=== PATIENT | male | born 1945 | race Caucasian/White ===

== ENCOUNTER 2022-04-22 16:44 | Emergency (ER) | payer MEDICARE, OTHER, SELFPAY ==
[2022-04-22 16:45] VITALS: BP 145/81; PULSE 70; RESP 18; TEMP 36.4; O2SAT 98; BMI 22.9
--- NOTE | 2022-04-22 17:08 | CT_ITS ---
STUDY: CT BRAIN WITHOUT CONTRAST REASON FOR EXAM: Male, 76 years old. Fell playing basketball and hit head. Abrasion and laceration to the right. RADIATION DOSAGE (If Supplied By Facility): CTDIvol = ( 44.99 ) mGy, DLP = ( 846.73 ) mGycm TECHNIQUE: Transaxial CT imaging of the brain was performed without administration of intravenous contrast material. Individualized dose optimization techniques were used for this CT. COMPARISON: No relevant priors. FINDINGS: Normal soft tissue structures. Normal calvarium. Normal size ventricles and extra-axial spaces for the patient''s age. Normal white matter tracts of the cerebral hemispheres. Normal basal ganglia and thalami. Normal brainstem. Normal cerebellum. There is no intracranial hemorrhage. There are no findings of an acute ischemic infarction. There is mucoperiosteal reaction bilateral axillary, ethmoid and sphenoid sinuses. CT/Brain/Head without Contrast IMPRESSION: 1. No evidence of acute intracranial or calvarial abnormality. 2. Sinusitis. Electronically Signed: Marquez Carcamo DO at 17:36 EDT Reading Location ID and State: [id number] [facility] Tel [phone], Service support ,
--- NOTE | 2022-04-22 17:09 | EDS_ITS ---
HPI HPI - Fall History of Present Illness Chief Complaint: Fall Informant: patient Occured/Mechanism Occurred: Today Mechanism/Context: Yes same level fall Usually ambulates: Without assistance Pain/Injury Pain Location: face and lower extremity Current Severity: Mild Maximum Severity: Mild Worsened by: palpation Relieved by: leaving alone Associated Symptoms Associated Symptoms: Negative for Parasthesias, Weakness, Loss of function, Inability to ambulate, Loss of consciousness or Amnesia Narrative Narrative: Patient was playing basketball with his granddaughter, he went for a lay up and stepped wrong when he came down, underwent mechanical fall, falling to his face hitting on the pavement sustaining injury to his upper lip, his forehead, and scraped his right leg. No loss of consciousness. Minor headache. He self treated the abrasion on his right lower leg. No pain with walking, he denies any problems otherwise in his legs right now. No prodromal symptoms. Tetanus Immunization: >10 years [facility] Medical History (Updated 04/22/22 @ 18:[address] Keagan Hernandez MD) Esophageal reflux Hiatal hernia History of renal calculi Home Medications ondansetron 4 mg disintegrating tablet 4 mg PO Q8H PRN PRN Nausea ##10 04/22/14 [Rx Last Taken Unknown] oxycodone-acetaminophen 5 mg-325 mg tablet 1 - 2 tab PO Q4H PRN PRN Pain ##20 04/22/14 [Rx Last Taken Unknown] Allergy/AdvReac Type Severity Reaction Status Date / Time shellfish derived Allergy Anaphylaxis Verified 04/22/22 16:44 Surgical History (Updated 04/22/22 @ 17:20 by Britany Madden) History of cholecystectomy History of hernia repair Social History Smoking Status: Never smoker ROS ROS ED Constitutional Constitutional ED: Denies chills or fever(s) Eyes Eyes: Denies change in vision or diplopia ENT ENT ED: Reports facial pain and other Details: wounds ; Denies ear pain, epistaxis or rhinorrhea Cardiovascular Cardiovascular: Denies chest pain or palpitations Respiratory/Chest Respiratory/Chest: Denies cough or dyspnea Gastrointestinal Gastrointestinal: Denies abdominal pain, diarrhea, melena, nausea or vomiting Genitourinary Genitourinary ED: Denies dysuria or hematuria Musculoskeletal Musculoskeletal: Denies back pain, extremity pain or neck pain Integumentary Reports Abrasions and laceration; Denies abscess or rash Neurologic Neurologic: Reports headache(s); Denies confusion, paresthesias or weakness EXAM Physical Exam Const Vital Signs: 04/22/22 16:45 04/22/22 17:20 Temperature 97.5 F L Temperature Source Temporal Pulse Rate 70 Respiratory Rate 18 Respiratory Effort Normal Non-Labored Respiratory Depth Normal Respiratory Pattern Normal Blood Pressure 145/81 H Blood Pressure Mean 102 Pulse Ox 98 Oxygen Delivery Method Room Air Room Air Positive well nourished and well developed General Appearance ED: well developed and NAD HEENT Reports TM's clear and nasal mucous membranes and turbinates normal HEENT Narrative: 2.5 cm laceration right forehead above the eyebrow, no eye trauma. Clean linear no active hemorrhaging. Abrasion to the face between the nose and the lip, vermilion border unaffected, within the patient's mustache. If lacerated is very superficial and does not distract. Mucosal aspect of the right inner upper lip, superficial laceration/abrasion without need for repair, no associated dental injury. Abrasion/contusion right cheek without bony tenderness or infraorbital hypoesthesia. Face and Sinus: facial tenderness right (At laceration/soft tissue injuries only, no bony tenderness) Tympanic Membrane ED: Yes TM's clear Eyes PERRL and EOMs intact bilaterally Eyes Narrative: No sign of globe trauma Visual Acuity: other Other Details: no entrapment or pain with extraocular movements Neck full ROM and supple General: Negative for tenderness Chest Wall inspection of chest normal Chest: symmetrical chest wall rise Resp normal respiratory effort Back/Spine normal ROM Cervical Spine: Negative for cervical spine tenderness Thoracic Spine / Upper Back: Negative for thoracic spinal tenderness Lumbar Spine / Lower Back: Negative for lumbar spinal tenderness Extremity normal to inspection and full ROM General Extremety ED: Negative for tenderness Neuro oriented x3, CN's II-XII intact bilaterally, moves all extremities, no focal motor deficits and no sensory deficits noted [place] Coma Scale: document GCS findings Spontaneous Obeys Commands Oriented 15 Sensorium / Orientation: awake and alert Psych mental status grossly normal and thought process normal Skin Skin Narrative: Abrasion right lower leg laterally, without bony tenderness or laceration. Abrasion/laceration on face see HEENT. Lesions: no lesions Rashes: no rashes MDM MDM MDM Narrative Medical decision making narrative: CT of the head was performed and was negative for any skull fracture or acute intracranial hemorrhage. Facial laceration was repaired. I do not think the 1 within his mustache requires repair. If it was not within his mustache I might glue it, but it does not distract and I think it will be fine, which we discussed. His tetanus was updated. Discharged home with appropriate instructions to have sutures out in 5-6 days. Radiography Diagnostic Testing: Clinical Impression(s) from Imaging Studies Brain CT 04/22/22 17:08 IMPRESSION: 1. No evidence of acute intracranial or calvarial abnormality. 2. Sinusitis. Electronically Signed: Marquez Carcamo DO at 17:36 EDT Reading Location ID and State: [address] [place] [address] Tel [phone], Service support , Procedures Lacerations R face/brow: Length: 2.5 cm Depth: Sub Q Shape: Linear Prep: Sterile Conditions and Chlorhexadine Laceration repair: Lidocaine with epi (2cc) and - (Manually scrubbed with chlorhexidine) Number of Sutures/Luc: 4 Suture Information: Ethilon, Simple and 6-0 Discharge Plan Triage Chief Complaint: Fall ED Provider: Keagan Hernandez Dx/Rx/DC Orders Clinical Impression: Closed head injury without concussion, Laceration of face, Abrasion, multiple sites Instructions: ED Laceration: All Closures Prescriptions: No Action oxycodone-acetaminophen 1 TABLET tablet 1 - 2 tab PO Q4H PRN PRN (Reason: Pain) Qty: 20 0RF ondansetron 4 MG tablet 4 mg PO Q8H PRN PRN (Reason: Nausea) Qty: 10 0RF Primary Care Provider: Caio Pace Referrals: Caio Pace MD [Primary Care Provider] - 5 Days for suture removal (Or ER/urgent care) Disposition Disposition: Home, Self Care
[2022-04-22] MEDS: Lidocaine/Epi/Tetracaine 50 ML 1 APPLIC TOPICAL (18:10)
[2022-04-22] MEDS: Diphth,Pertuss(Acell),Tet Vac 0.5 ML Vial IM (18:24)
[2022-04-22] MEDS: Lidocaine 1% /Epi 1:100 (20ml) 20 ML Vial INFILT (18:26)
[2022-04-22 19:15] VITALS: BP 145/81; PULSE 70; RESP 18; O2SAT 98
== END 2022-04-22 19:16 | disposition home or self-care (01) ==
PROVIDERS: Emergency Provider Emergency Medicine; PCP Internal Medicine; Visit Provider Emergency Medicine
DX: S01.81XA Laceration without foreign body of other part of head, initial encounter (principal); S80.811A Abrasion, right lower leg, initial encounter; W18.39XA Other fall on same level, initial encounter; Y93.67 Activity, basketball; Y99.8 Other external cause status; Z23 Encounter for immunization
CPT/HCPCS: 12011; 70450; 90471; 90715; 99283

== ENCOUNTER → 2023-12-04 | Outpatient (CLI) | payer MEDICARE, OTHER, SELFPAY ==
--- NOTE | 2023-12-04 13:01 | CT_ITS ---
STUDY: CT ORBITS WITH CONTRAST REASON FOR EXAM: Male, 77 years old. Diplopia RADIATION DOSAGE (If Supplied By Facility): CTDIvol = ( 29.38 ) mGy, DLP = ( 400.54 ) mGycm TECHNIQUE: The patient was scanned in a multi detector CT scanner. Transaxial imaging was performed following the intravenous administration of IV 100mL [id number]-[id number]. Sagittal and coronal images were reconstructed. Individualized dose optimization techniques were used for this CT. COMPARISON: None. FINDINGS: Normal globes. Normal intraconal spaces. Normal optic nerve sheath complex. Normal bilateral extraocular muscles. Normal lacrimal glands. Normal bilateral medial and inferior orbital miller. Normal bilateral maxillary bones. Normal bilateral frontozygomatic arches. Normal bilateral zygomatic temporal arches. Normal frontal sinus. Normal ethmoidal sinuses. There is a 1 cm retention cyst or polyp along the inferior medial aspect of the right sphenoid sinus. Small mucosal polyps at the base of the left maxillary sinus. There is a 1.3 cm x 1.4 cm polyp or retention cyst in the lateral wall of the sphenoid sinus as well as mucosal thickening of the sphenoid sinus. There is also evidence of a 7.2 mm polyp or retention cyst in the anterior aspect of the right sphenoid sinus. Atherosclerotic calcification of the cavernous portions of the internal carotid arteries bilaterally. There is no demonstrated abnormal enhancement. CT/Orb Sella Post Fossa Ear W/CON IMPRESSION: Retention cysts seen in the sphenoid sinus and maxillary sinuses. Electronically Signed: Spencer Bain MD at 14:07 EDT ,
[2023-12-04 13:52] LABS: CREATININE FINGERSTICK 1.2 mg/dL (0.70-1.30); EGFR FINGERSTICK > 60.0000 mL/min (>60)
== END | disposition home or self-care (01) ==
LOC: CT 12:59
PROVIDERS: PCP Internal Medicine; Referring Provider Ophthalmology; Visit Provider Ophthalmology
DX: H53.2 Diplopia (principal)
CPT/HCPCS: 70481; Q9967

== ENCOUNTER 2024-07-26 18:17 | Inpatient (IN) | payer MEDICARE, OTHER, SELFPAY ==
[2024-07-26 18:18] VITALS: BP 146/72; PULSE 82; RESP 18; TEMP 36.1; O2SAT 98; BMI 24.2
[2024-07-26 18:35] LABS: Absolute Lymphocyte Count 1.39 X10^3/uL (0.83-4.51); Absolute Neutrophil Count 5.9 X10^3/uL (2.0-7.7); Basophil# 0.09 X10^3/uL; Basophil% 1.1 % (0-1); Eosinophil# 0.43 X10^3/uL; Eosinophils% 5.1 % (0-5); Hemoglobin 14.7 g/dL (13.0-16.5); Lymphocyte # 1.39 X10^3/ul (0.83-4.51); Lymphocyte % 16.4 % (19-41); Mean Corp Hgb Conc 33.4 g/dL (32-36); Mean Corpuscular Hgb 28.3 pg (27.0-32.0); Mean Corpuscular Volume 84.6 fL (80-94); Mean Platelet Vol. 9.6 fl (6.2-12.0); Monocyte# 0.65 X10^3/uL; Monocyte% 7.7 % (0-10); NRBC Flagged by Analyzer 0 % (0-5); Neutrophil # 5.87 X10^3/uL (2.7-7.7); Neutrophil % 69.3 % (47-70); Platelet Count 253 K/mm3 (150-450); RBC Distribution Width CV 13.1 % (11.6-14.6); RBC Distribution Width SD 40.4 fl (35.1-43.9); White Blood Count 8.5 K/mm3 (4.4-11.0)
[2024-07-26 19:05] LABS: ALB/GLOB Ratio 0.9 RATIO (0.9-2.4); AST(SGOT) 16 U/L (15-37); Alanine Aminotransfer ALT/SGPT 25 U/L (16-61); Albumin, Serum 3.4 g/dL (3.2-5.0); Alkaline Phosphatase 66 U/L (45-117); Anion Gap 5 (5-15); BUN 27 mg/dL (7-18); BUN/Creat Ratio 22.7 RATIO (10-20); Calcium,Total 9.7 mg/dL (8.5-10.1); Chloride 105 mmol/L (98-107); Creatinine, Serum 1.19 mg/dL (0.70-1.30); EST Glomerular Filtration Rate 63 mL/min (>60); Est Glom Filt Rate - Afr Amer 76 mL/min (>60); Estimated Creatinine Clearance 52.82 ml/min; Globulin 3.9 g/dL (2.2-4.2); Glucose 143 mg/dL (74-106); Potassium 4.3 mmol/L (3.5-5.1); Protein, Total 7.3 g/dL (6.4-8.2); Sodium Level 139 mmol/L (136-145)
[2024-07-26 19:16] LABS: Bacteria 0 SEEN /hpf (None Seen); Red Blood Cells-Urine 0 SEEN /hpf (0-5); Squamous Epithelial Cells - UA 0 SEEN /hpf (0-5); White Blood Cells 0 SEEN /hpf (0-5)
--- NOTE | 2024-07-26 19:16 | CT_ITS ---
STUDY: CT ABDOMEN AND PELVIS WITH CONTRAST REASON FOR EXAM: Male, 78 years old. abdominal pain RADIATION DOSAGE (If Supplied By Facility): CTDIvol = ( 14.41 ) mGy, DLP = ( 651.54 ) mGycm TECHNIQUE: Transaxial images were obtained from the dome of the diaphragm to the symphysis pubis without oral contrast. 100ml-[id number] was administered. Sagittal and coronal images were reconstructed. Individualized dose optimization techniques were used for this CT. COMPARISON: April 22, 2014. FINDINGS: The visualized lung bases are unremarkable. The visualized portions of the heart are within normal limits. Small hiatal hernia is noted Liver is normal size. There is a tiny hypoattenuated density in the right lobe which is too small to characterize. Bile ducts are nondilated. [Gallbladder not visualized consistent with cholecystectomy. Normal spleen. Normal pancreas. Normal bilateral adrenal glands. Normal right kidney. Normal left kidney. Normal visualized stomach. Normal small intestine. Diverticular disease of the sigmoid colon is with noted stranding in the adjacent fat and a small peridiverticular abscess measuring approximately 2 x 1.75 cm. The appendix is visualized and appears normal. Atherosclerotic changes of the aorta without evidence for aneurysm. Normal inferior vena cava. Normal retroperitoneum. Incompletely distended thick walled bladder likely of no significance. Nonspecific enlargement of prostate Normal abdominal wall. Normal osseous structures. CT/Abdomen/Pelvis W IV Cont ONLY IMPRESSION: Diverticulosis and acute diverticulitis of the sigmoid colon with small peridiverticular abscess measuring approximately 2 x 1.75 cm. Electronically Signed: Christian Lee MD at 20:01 EST ,
--- NOTE | 2024-07-26 19:18 | EX.ED.DYSGE1 ---
HPI <NAVIN Tobar - Last Filed: 07/26/24 21:51> History of Present Illness Chief Complaint: Abd Pain Narrative Narrative: Patient is a 78-year-old male with history of GERD, esophageal stretching presents to the [facility] apartment for lower abdominal pain. Patient states 3 to 4 days ago he developed lower abdominal pain, had some bodyaches, chills, and some difficulty urinating. Patient called his PCP, and they received blood work, he did have a leukocytosis with some protein in his urine. There is also blood in the urine. There were concern for possible kidney stone. Patient is he is still feeling improvement now he still feels off. He was told to come to the [facility] part by his PCP. PFSH <NAVIN Tobar - Last Filed: 07/26/24 21:51> PFS Medical History (Updated 07/26/24 @ 23:[address] Yane Galloway MD) CKD (chronic kidney disease), stage II Esophageal stenosis Hiatal hernia Esophageal reflux History of renal calculi Home Medications ?Medication ?Instructions ?Recorded ?Last Taken ?Type ondansetron 4 mg disintegrating 4 mg PO Q8H PRN PRN Nausea #10 tabs 04/22/14 Unknown Rx tablet oxycodone-acetaminophen 5 mg-325 1 - 2 tab PO Q4H PRN PRN Pain #20 04/22/14 Unknown Rx mg tablet tabs Allergy/AdvReac Type Severity Reaction Status Date / Time shellfish derived Allergy Anaphylaxis Verified 07/26/24 18:18 Family History (Updated 07/26/24 @ 23:[address] Yane Galloway MD) Mother Bowel obstruction Parkinsons disease Father Borderline diabetes CVA (cerebral vascular accident) Family History no significant family his Surgical History (Updated 07/26/24 @ 23:[address] Yane Galloway MD) Dilation of esophagus History of hernia repair History of cholecystectomy Social History (Updated 07/26/24 @ 23:[address] Yane Galloway MD) household members: spouse Smoking Status: Never smoker alcohol intake: current alcohol intake frequency: holidays/special occasions only substance use type: does not use ROS <NAVIN Tobar - Last Filed: 07/26/24 21:51> ROS ED ROS Narrative Constitutional: Negative for chills, weight loss, weakness. Positive fever Eyes: Negative for vision loss, vision change, double vision ENT: Negative for any sore throat, ear pain, congestion Cardiovascular: Negative for any chest pain, tightness, palpitations Respiratory: Negative for any cough, sputum production, hemoptysis, dyspnea, dyspnea on exertion, orthopnea Gastrointestinal: Negative for any nausea, vomiting, diarrhea, constipation, blood in stool, blood in vomit. Positive lower abdominal pain : Negative for any urinary frequency, dysuria, retention, blood in urine Muscle skeletal: Negative for any neck pain, back pain Neurological: Negative for any headache, syncope, dizziness Skin: Negative for any rashes, itching, abrasions, lacerations Psychiatric: Negative for any depression, anxiety, stress, suicidal ideation, homicidal ideation Hematologic: Negative for any excessive bruising, easy bleeding EXAM <NAVIN Tobar - Last Filed: 07/26/24 21:51> Physical Exam Narrative Exam Narrative: Vital signs reviewed. HEET: Head normocephalic atraumatic, TMs clear bilaterally. Posterior pharynx is clear, moist mucous membranes. Nares clear bilaterally. Neck: Supple with no lymphadenopathy or tenderness. No signs of meningismus. Cardiac: Regular rate and rhythm no murmurs gallops or rubs, equal peripheral pulses bilaterally. Respiratory: Lungs clear to auscultation bilaterally. No chest tenderness. Abdomen: Soft, nontender, nondistended. No abdominal bruit or pulsatile masses. No hepatosplenomegaly Extremities: No peripheral edema, no signs of gross trauma or deformity. Active full range of motion of all extremities. Neuro: Cranial nerves II through XII intact, no focal neurological deficits. Skin: Clean dry and intact with no rash, purpura, petechiae, vesicles or pustules. Backs/flank: No CVA tenderness, no midline spinal tenderness, no deformity. Psych: Normal mood and affect. No SI, HI or acute psychosis. Const Vital Signs: 07/26/24 18:18 07/26/24 20:18 07/26/24 22:00 Temperature 97 F L 98 F Temperature Source Temporal Pulse Rate 82 98 67 Respiratory Rate 18 16 17 Blood Pressure 146/72 H 134/70 H 144/79 H Blood Pressure Mean 96 91 100 Pulse Ox 98 98 98 Oxygen Delivery Method Room Air 07/26/24 22:12 Temperature 98 F Temperature Source Oral Pulse Rate 65 Respiratory Rate 18 Blood Pressure 144/79 H Blood Pressure Mean 100 Pulse Ox 99 Oxygen Delivery Method Room Air <Dr. Kelly Gilbert DO - Last Filed: 07/26/24 23:49> Physical Exam Const Vital Signs: 07/26/24 18:18 07/26/24 20:18 07/26/24 22:00 Temperature 97 F L 98 F Temperature Source Temporal Pulse Rate 82 98 67 Respiratory Rate 18 16 17 Blood Pressure 146/72 H 134/70 H 144/79 H Blood Pressure Mean 96 91 100 Pulse Ox 98 98 98 Oxygen Delivery Method Room Air 07/26/24 22:12 Temperature 98 F Temperature Source Oral Pulse Rate 65 Respiratory Rate 18 Blood Pressure 144/79 H Blood Pressure Mean 100 Pulse Ox 99 Oxygen Delivery Method Room Air MDM <NAVIN Tobar - Last Filed: 07/26/24 21:51> [facility] Lab Data Labs: Laboratory Results - last 24 hr 07/26/24 07/26/24 18:29 19:00 WBC 8.5 RBC 5.20 Hgb 14.7 Hct 44.0 MCV 84.6 MCH 28.3 MCHC 33.4 RDW Std Deviation 40.4 RDW Coeff of Lesli 13.1 Plt Count 253 MPV 9.6 Immature Gran % (Auto) 0.400 Neut % (Auto) 69.3 Lymph % (Auto) 16.4 L Vance % (Auto) 7.7 Eos % (Auto) 5.1 H Baso % (Auto) 1.1 H Absolute Neuts (auto) 5.9 Absolute Lymphs (auto) 1.39 Nucleated RBC % 0 Sodium 139 Potassium 4.3 Chloride 105 Carbon Dioxide 29.0 Anion Gap 5 BUN 27 H Creatinine 1.19 Estim Creat Clear Calc 52.82 Est GFR (MDRD) Af Amer 76 Est GFR (MDRD) Non-Af 63 BUN/Creatinine Ratio 22.7 H Glucose 143 H Calcium 9.7 Total Bilirubin 0.40 AST 16 ALT 25 Alkaline Phosphatase 66 Total Protein 7.3 Albumin 3.4 Globulin 3.9 Albumin/Globulin Ratio 0.9 Urine Color Yellow Urine Clarity Clear Urine pH 6.0 Ur Specific [place] 1.025 Urine Protein 15 H Urine Glucose (UA) Normal Urine Ketones Negative Urine Occult Blood Negative Urine Nitrite Negative Urine Bilirubin Negative Urine Urobilinogen Normal Ur Leukocyte Esterase Negative Urine RBC 0 SEEN Urine WBC 0 SEEN Ur Squamous Epith Cells 0 SEEN Urine Bacteria 0 SEEN Urine Mucus 1+ Radiography Diagnostic Testing: Clinical Impression(s) from Imaging Studies Abdomen/Pelvis CT 07/26/24 19:16 IMPRESSION: Diverticulosis and acute diverticulitis of the sigmoid colon with small peridiverticular abscess measuring approximately 2 x 1.75 cm. Electronically Signed: Christian Lee MD at 20:01 EST Reading Location ID and State: [facility] / [place] Tel , Service support , Treatment and Re-Evaluation :: Differential diagnosis includes however is not limited to: Viral gastroenteritis, prostatitis, UTI, cystitis, diverticulitis, obstructing kidney stone, history of past kidney stone Patient appears generally well, vital signs are stable, patient is nontoxic-appearing. Resenting to the [facility] apartment for lower abdominal pain, fever chills, difficulty urinating. Patient has been having issues for the last 3 to 4 days. He does feel most improved today. However patient will receive the basic laboratory values, urinalysis as well as CT scan of the abdomen pelvis with IV contrast. Patient is currently not in any distress. All radiologic examinations were read, reviewed by the emergency department attending. From these reads, a plan of care will be put in place. Patient's laboratory values showed normal CBC, patient's chemistries show BUN 27, glucose 143, urinalysis was negative for any infection. CT scan of the abdomen pelvis with IV contrast shows diverticulosis and acute diverticulitis of the sigmoid colon with small peridiverticular abscess measuring approximately 2 x 1.75 cm. Secondary this finding, I will reach out to surgery. I spoke with surgery, this is not a surgical abscess at this time. This would be mostly interventional radiology however per the surgeon, this is significantly small. Speaking with the surgeon, the recommendation is IV antibiotics. I spoke with the patient regarding this, patient will need to be admitted the hospital for IV antibiotics. Patient will be placed on IV Zosyn. <Dr. Kelly Gilbert, DO - Last Filed: 07/26/24 23:49> [facility] Lab Data Attestation: I reviewed the patient's lab results. Labs: Laboratory Results - last 24 hr 07/26/24 07/26/24 18:29 19:00 WBC 8.5 RBC 5.20 Hgb 14.7 Hct 44.0 MCV 84.6 MCH 28.3 MCHC 33.4 RDW Std Deviation 40.4 RDW Coeff of Lesli 13.1 Plt Count 253 MPV 9.6 Immature Gran % (Auto) 0.400 Neut % (Auto) 69.3 Lymph % (Auto) 16.4 L Vance % (Auto) 7.7 Eos % (Auto) 5.1 H Baso % (Auto) 1.1 H Absolute Neuts (auto) 5.9 Absolute Lymphs (auto) 1.39 Nucleated RBC % 0 Sodium 139 Potassium 4.3 Chloride 105 Carbon Dioxide 29.0 Anion Gap 5 BUN 27 H Creatinine 1.19 Estim Creat Clear Calc 52.82 Est GFR (MDRD) Af Amer 76 Est GFR (MDRD) Non-Af 63 BUN/Creatinine Ratio 22.7 H Glucose 143 H Calcium 9.7 Total Bilirubin 0.40 AST 16 ALT 25 Alkaline Phosphatase 66 Total Protein 7.3 Albumin 3.4 Globulin 3.9 Albumin/Globulin Ratio 0.9 Urine Color Yellow Urine Clarity Clear Urine pH 6.0 Ur Specific [place] 1.025 Urine Protein 15 H Urine Glucose (UA) Normal Urine Ketones Negative Urine Occult Blood Negative Urine Nitrite Negative Urine Bilirubin Negative Urine Urobilinogen Normal Ur Leukocyte Esterase Negative Urine RBC 0 SEEN Urine WBC 0 SEEN Ur Squamous Epith Cells 0 SEEN Urine Bacteria 0 SEEN Urine Mucus 1+ Radiography Diagnostic Testing: Clinical Impression(s) from Imaging Studies Abdomen/Pelvis CT 07/26/24 19:16 IMPRESSION: Diverticulosis and acute diverticulitis of the sigmoid colon with small peridiverticular abscess measuring approximately 2 x 1.75 cm. Electronically Signed: Christian Lee MD at 20:01 EST Reading Location ID and State: [facility] / [place] Tel , Service support , Treatment and Re-Evaluation :: Differential diagnosis includes however is not limited to: Viral gastroenteritis, prostatitis, UTI, cystitis, diverticulitis, obstructing kidney stone, history of past kidney stone Patient appears generally well, vital signs are stable, patient is nontoxic-appearing. Resenting to the [facility] apartment for lower abdominal pain, fever chills, difficulty urinating. Patient has been having issues for the last 3 to 4 days. He does feel most improved today. However patient will receive the basic laboratory values, urinalysis as well as CT scan of the abdomen pelvis with IV contrast. Patient is currently not in any distress. All radiologic examinations were read, reviewed by the emergency department attending. From these reads, a plan of care will be put in place. Patient's laboratory values showed normal CBC, patient's chemistries show BUN 27, glucose 143, urinalysis was negative for any infection. CT scan of the abdomen pelvis with IV contrast shows diverticulosis and acute diverticulitis of the sigmoid colon with small peridiverticular abscess measuring approximately 2 x 1.75 cm. Secondary this finding, I will reach out to surgery. I spoke with surgery, this is not a surgical abscess at this time. This would be mostly interventional radiology however per the surgeon, this is significantly small. Speaking with the surgeon, the recommendation is IV antibiotics. I spoke with the patient regarding this, patient will need to be admitted the hospital for IV antibiotics. Patient will be placed on IV Zosyn. I have personally performed a face to face assessment of the patient and have reviewed the VIMAL Note. I performed a substantive portion of the visit including all aspects of the following. My morris findings include: Patient is evaluated for improving lower abdominal pain but had a recent leukocytosis, low-grade fever and abdominal pain. Symptoms were going on for about 4 days. Does note a slight change in his bowel movements but no diarrhea or blood in his stool. Exam benign. Vital signs normal. Abdominal workup performed concern for intra-abdominal infection. He is found to have acute diverticulitis with small peridiverticular abscess measuring 2 x 1.75 cm. Case discussed with surgeon on-call, , who does not think this is surgical or any drainage at this time does recommend IV antibiotics preferably. Patient is agreeable. Patient started on Zosyn in the emergency room. Will be admitted to the hospitalist service. Discharge Plan Dx/Rx/DC Orders Clinical Impression: Abdominal pain, Diverticulitis of intestine with abscess Disposition Disposition: Acute Care [facility] Discharge Date/Time: 07/26/24 23:30
[2024-07-26 19:19] LABS: Color, Urine Yellow (Yellow); Glucose, Dipstick Normal (Normal); Ketone-Dipstick Negative (Negative); Leukocyte Esterase-Dipstick Negative /ul (Negative); Nitrite-Dipstick Negative (Negative); Occult Blood-Urine Negative /ul (Negative); Protein-Dipstick 15 mg/dl (Negative); Specific Gravity, Urine 1.025 (1.002-1.030); Urine Bilirubin Dipstick Negative (Negative); Urine Clarity Clear (Clear); Urine Urobilinogen Normal (Normal)
[2024-07-26 19:32] LABS: Mucous, Urine 1+ /hpf (<or=2+)
[2024-07-26 20:18] VITALS: BP 134/70; PULSE 98; RESP 16; O2SAT 98
--- NOTE | 2024-07-26 21:54 | PCM.HP.STD ---
HPI - General General Date of Admission: 07/26/24 Date of Service: 07/26/24 Chief Complaint: Lower abdominal pain HPI Narrative The patient is a 78 y/o M w/ PMHx: CKD stage II per GFR trending, GERD, Hx esophageal stenosis s/p dilation x 2 prior, Hx nephrolithiasis who presents to the [facility] on 07/26/24 with history of onset lower abdominal discomfort ongoing over the last 3 to 4 days with mild body aches and chills with some difficulty urinating prompting PCP call with some concerns therefore blood work was obtained with mild leukocytosis and some protein in his urine as well as some blood with initial concern for kidney stone and eventually he did feel improved but still not his baseline with primary care encouragement to present to the ED for evaluation. He notes that the abdominal pain had been sharp stabbing in the lower quadrants, 8-10 in severity but suddenly on improved and resolved; however, he saw his follow-up labs from recent PCP directed work-up and was concerned as they had been abnormal with eventual recommendation to present to the ED for CT scan. He notes he has been tolerating food and last bowel movement was today and normal in color and appearance. Workup in the ED included T97, heart rate 82, BP 146/72, respiratory rate 18, 98% on room air with most recent repeat vitals heart rate 98, BP 134/70, respiratory rate 16, 98% on room air, CBC with WBC 8.5, hemoglobin 14.7, platelet 253 without marked left shift noted, CMP with glucose 143, BUN/creatinine 27/1.19, GFR 63, CT abdomen and pelvis with contrast with diverticulosis and an acute diverticulitis of the sigmoid colon with a small peridiverticular abscess measuring approximately 2 x 1.75 cm, urinalysis with elevated specific gravity 1.025 with no evidence of UTI. In the ED patient ministered IV Zosyn. ED discussed with General surgery Dr. Funes and given size likely will only need IV abx therapy but if worsens may require IR. [facility] Medical History (Updated 07/26/24 @ 23:[address] Yane Galloway MD) CKD (chronic kidney disease), stage II Esophageal stenosis Hiatal hernia Esophageal reflux History of renal calculi Home Medications ?Medication ?Instructions ?Recorded ?Last Taken ?Type ondansetron 4 mg disintegrating 4 mg PO Q8H PRN PRN Nausea #10 tabs 04/22/14 Unknown Rx tablet oxycodone-acetaminophen 5 mg-325 1 - 2 tab PO Q4H PRN PRN Pain #20 04/22/14 Unknown Rx mg tablet tabs Allergy/AdvReac Type Severity Reaction Status Date / Time shellfish derived Allergy Anaphylaxis Verified 07/26/24 18:18 Family History (Updated 07/26/24 @ 23:[address] Yane Galloway MD) Mother Bowel obstruction Parkinsons disease Father Borderline diabetes CVA (cerebral vascular accident) Family History no significant family his Surgical History (Updated 07/26/24 @ 23:[address] Yane Galloway MD) Dilation of esophagus History of hernia repair History of cholecystectomy Social History (Updated 07/26/24 @ 23:[address] Yane Galloway MD) household members: spouse Smoking Status: Never smoker alcohol intake: current alcohol intake frequency: holidays/special occasions only substance use type: does not use ROS ROS Narrative Admission Review of Systems: CONSTITUTIONAL: No weight loss,+ low-grade fever, chills, weakness or fatigue. HEENT: Eyes: No visual loss, blurred vision, double vision or yellow sclerae. Ears, Nose, Throat: No hearing loss, sneezing, congestion, runny nose or sore throat. SKIN: No rash or itching, lesions, wounds. CARDIOVASCULAR: No chest pain, chest pressure or chest discomfort, palpitations, edema, orthopnea, syncopal events. RESPIRATORY: No shortness of breath, cough or sputum, wheezing, hemoptysis. GASTROINTESTINAL: + Abdominal pain. History of esophageal stricture/narrowing requiring prior dilation but no recent complaints of any coughing or difficulty swallowing foods. No anorexia, nausea, vomiting or diarrhea, melena, BRBPR. GENITOURINARY: + urinary hesitancy. No dysuria, frequency, urgency or retention. NEUROLOGICAL: No headache, dizziness, syncope, paralysis, ataxia, numbness or tingling in the extremities, focal weakness, change in bowel or bladder control, seizure. MUSCULOSKELETAL: No muscle, back pain, joint pain or stiffness. HEMATOLOGIC: No anemia, bleeding or bruising. LYMPHATICS: No enlarged nodes. No history of splenectomy. PSYCHIATRIC: No history of depression or anxiety. ENDOCRINOLOGIC: No reports of sweating, cold or heat intolerance. No polyuria or polydipsia. ALLERGIES: + History of shellfish anaphylaxis. Vital Signs Vital Signs Vital Signs: 07/26/24 18:18 07/26/24 20:18 Temperature 97 F L Temperature Source Temporal Pulse Rate 82 98 Respiratory Rate 18 16 Blood Pressure 146/72 H 134/70 H Blood Pressure Mean 96 91 Pulse Ox 98 98 Oxygen Delivery Method Room Air Weight Weight: 168 lb 13.985 oz Body Mass Index (BMI) 24.2 Physical Exam Narrative Physical Examination: General: Awake, alert, oriented x 3 and cooperative, seated upright in the ED bed in no apparent distress, currently denies any abdominal pain and notes it has been resolved since . Skin: Normal color, normal turgor, no icterus, no cyanosis. HEENT: AT/NC, EOMI, PERRLA, MMM, no carotid bruits or JVD noted. Lungs: CTA bilaterally, moderate effort, mild decrease BL bases, no rales, ronchi or wheezing. Heart: Regular rate and rhythm; no gallop, rub audible. Abdomen: Soft, NTTP despite diverticular abscess and diverticulitis evident, ND, hyperactive BS, no appreciated HSM. Extremities: No cyanosis, clubbing, or edema. Neurological: Patient awake, alert, oriented x 3, cognitive function intact; pupils equally reactive to light and accommodation, cranial nerves grossly normal, moving all 4 extremities, no focal deficits, strength preserved. Psychiatric: Affect appears fatigued otherwise normal, no acute evidence of depressive or anxiety feelings. Results Lab / Micro Data 07/26/24 18:29 07/26/24 18:29 Labs: Laboratory Results - last 24 hr 07/26/24 18:29: WBC 8.5, RBC 5.20, Hgb 14.7, Hct 44.0, MCV 84.6, MCH 28.3, MCHC 33.4, RDW Std Deviation 40.4, RDW Coeff of Lesli 13.1, Plt Count 253, MPV 9.6, Immature Gran % (Auto) 0.400, Neut % (Auto) 69.3, Lymph % (Auto) 16.4 L, [place] % (Auto) 7.7, Eos % (Auto) 5.1 H, Baso % (Auto) 1.1 H, Absolute Neuts (auto) 5.9, Absolute Lymphs (auto) 1.39, Nucleated RBC % 0, Sodium 139, Potassium 4.3, Chloride 105, Carbon Dioxide 29.0, Anion Gap 5, BUN 27 H, Creatinine 1.19, Estim Creat Clear Calc 52.82, Est GFR (MDRD) Af Amer 76, Est GFR (MDRD) Non-Af 63, BUN/Creatinine Ratio 22.7 H, Glucose 143 H, Calcium 9.7, Total Bilirubin 0.40, AST 16, ALT 25, Alkaline Phosphatase 66, Total Protein 7.3, Albumin 3.4, Globulin 3.9, Albumin/Globulin Ratio 0.9 07/26/24 19:00: Urine Color Yellow, Urine Clarity Clear, Urine pH 6.0, Ur Specific [place] 1.025, Urine Protein 15 H, Urine Glucose (UA) Normal, Urine Ketones Negative, Urine Occult Blood Negative, Urine Nitrite Negative, Urine Bilirubin Negative, Urine Urobilinogen Normal, Ur Leukocyte Esterase Negative, Urine RBC 0 SEEN, Urine WBC 0 SEEN, Ur Squamous Epith Cells 0 SEEN, Urine Bacteria 0 SEEN, Urine Mucus 1+ Imaging Radiology Impression Abdomen/Pelvis CT 07/26/24 19:16 IMPRESSION: Diverticulosis and acute diverticulitis of the sigmoid colon with small peridiverticular abscess measuring approximately 2 x 1.75 cm. Electronically Signed: Christian Lee MD at 20:01 EST Reading Location ID and State: [facility] / [place] Tel , Service support , Assessment & Plan Assessment/Plan (1) Diverticulitis of intestine with abscess: PLAN: Plan The patient is a 78 y/o M w/ PMHx: CKD stage II per GFR trending, GERD, Hx esophageal stenosis s/p dilation x 2 prior, Hx nephrolithiasis who presents to the [facility] on 07/26/24 with history of onset lower abdominal discomfort ongoing over the last 3 to 4 days with mild body aches and chills with some difficulty urinating prompting PCP call with some concerns therefore blood work was obtained with mild leukocytosis and some protein in his urine as well as some blood with initial concern for kidney stone and eventually he did feel improved but still not his baseline with primary care encouragement to present to the ED for evaluation. #1. Acute Diverticulitis of the sigmoid colon with a small peridiverticular abscess: Will admit to [place], maintain on hydration, monitor I&Os, given no active pain and likely no interventional needs but primarily IV antibiotic therapy will allow clears at this time with advancement per surgery discretion, treat with continue zosyn regimen, IV PPI, anti-emetics, pain regimen PRN. General surgery consulted and evaluation pending. Unfortunately if interventional radiology intervention became necessary would not be available until Monday. #2. Hyperglycemia, suspect stress response: Admission glucose 143, if repeat AM BS remain elevated may consider obtaining hemoglobin A1c to be cautious. #3. Chronic Kidney Disease Stage II per GFR trending although not a significant amount of values to compare: Admission BUN/Cr 27/1.19, GFR 63, baseline renal function similar with 1.1 noted remotely, repeat BMP in AM. #4. GERD: Will maintain on IV PPI as noted. #5. DVT prophylaxis: Lovenox. Charges/Coding Visit Charges Inpatient E&M: 71169 Init Hosp L2
[2024-07-26 22:00] VITALS: BP 144/79; PULSE 67; RESP 17; TEMP 36.6; O2SAT 98
[2024-07-26] MEDS: Piperacil/Tazobactam 4.5 GM in 0.9% Normal Saline (100mL MB+) 100 ML IV (22:09)
[2024-07-26 22:12] VITALS: BP 144/79; PULSE 65; RESP 18; TEMP 36.6; O2SAT 99
[2024-07-26 23:41] VITALS: BMI 23.9
[2024-07-26 23:56] VITALS: BP 133/96; PULSE 61; RESP 16; TEMP 36.5; O2SAT 98
[2024-07-27] MEDS: 0.9% Normal Saline (1000mL) 1,000 ML 100 ML IV (00:01)
[2024-07-27] MEDS: 0.9% Normal Saline (100mL Bag) 100 ML 15 ML IV (04:52)
[2024-07-27] MEDS: Piperacil/Tazobactam 3.375 GM in 0.9% Normal Saline (50mL MB+) 50 ML IV ×3 (05:35→21:27)
[2024-07-27 05:53] VITALS: BP 114/66; PULSE 61; RESP 16; TEMP 36.6; O2SAT 96
[2024-07-27 06:00] VITALS: BMI 23.9
[2024-07-27 07:15] LABS: Absolute Lymphocyte Count 1.27 X10^3/uL (0.83-4.51); Absolute Neutrophil Count 5.2 X10^3/uL (2.0-7.7); Basophil# 0.08 X10^3/uL; Basophil% 1.1 % (0-1); Eosinophil# 0.37 X10^3/uL; Eosinophils% 4.9 % (0-5); Hematocrit 39.6 % (40-54); Hemoglobin 12.8 g/dL (13.0-16.5); Lymphocyte # 1.27 X10^3/ul (0.83-4.51); Lymphocyte % 16.9 % (19-41); Mean Corp Hgb Conc 32.3 g/dL (32-36); Mean Corpuscular Hgb 27.4 pg (27.0-32.0); Mean Corpuscular Volume 84.6 fL (80-94); Mean Platelet Vol. 9.8 fl (6.2-12.0); Monocyte# 0.61 X10^3/uL; Monocyte% 8.1 % (0-10); NRBC Flagged by Analyzer 0 % (0-5); Neutrophil # 5.15 X10^3/uL (2.7-7.7); Neutrophil % 68.7 % (47-70); Platelet Count 246 K/mm3 (150-450); RBC Distribution Width CV 13.2 % (11.6-14.6); RBC Distribution Width SD 40.2 fl (35.1-43.9); Red Blood Count 4.68 M/mm3 (4.6-6.2); White Blood Count 7.5 K/mm3 (4.4-11.0)
[2024-07-27 08:06] VITALS: BP 121/69; PULSE 62; RESP 17; TEMP 36.5; O2SAT 97
[2024-07-27 08:19] VITALS: O2SAT 95
[2024-07-27 09:50] LABS: ALB/GLOB Ratio 0.9 RATIO (0.9-2.4); AST(SGOT) 17 U/L (15-37); Alanine Aminotransfer ALT/SGPT 19 U/L (16-61); Albumin, Serum 2.9 g/dL (3.2-5.0); Alkaline Phosphatase 55 U/L (45-117); Anion Gap 5 (5-15); BUN 27 mg/dL (7-18); BUN/Creat Ratio 26.5 RATIO (10-20); Calcium,Total 9.1 mg/dL (8.5-10.1); Chloride 109 mmol/L (98-107); Creatinine, Serum 1.02 mg/dL (0.70-1.30); EST Glomerular Filtration Rate 75 mL/min (>60); Est Glom Filt Rate - Afr Amer 91 mL/min (>60); Estimated Creatinine Clearance 61.63 ml/min; Globulin 3.2 g/dL (2.2-4.2); Glucose 90 mg/dL (74-106); Protein, Total 6.1 g/dL (6.4-8.2); Sodium Level 140 mmol/L (136-145)
[2024-07-27] MEDS: Enoxaparin 40 MG/0.4 ML Syringe SC (09:59)
[2024-07-27] MEDS: Pantoprazole Sodium 40 MG in 0.9% Normal Saline (100mL MB+) 100 ML 330 MG IV ×2 (10:14→21:03)
--- NOTE | 2024-07-27 12:15 | CON.PCM.SX_ITS ---
Assessment & Plan Assessment/Plan (1) Diverticulitis of intestine with abscess: PLAN: Plan The patient is a 78-year-old male who presented with diverticulitis with a 2 cm abscess. Clinically he seems to be doing very well. Based on the size and location of the abscess, I suspect this is not amenable to IR drainage. I feel that antibiotic therapy should be sufficient to address the abscess. Would recommend continued IV antibiotics through today and he could probably be transition to oral antibiotics tomorrow and discharge home would be possible. I would suggest repeating a CT scan in a few weeks to document resolution of the abscess. It appears that it has been about 6 or 7 years since his last colonoscopy. Would likely recommend repeat colonoscopy in about 6 to 8 weeks after resolution of the current diverticulitis. No surgical plans. We will continue to follow along and advise accordingly. Diet can be advanced HPI Consult Data Date of Consult: 07/27/24 HPI Narrative Reason for Consultation: Sigmoid diverticulitis with abscess HPI Narrative: JAIME TURNER, is a 78 M who presented to the emergency department at [facility] last evening for further evaluation of abdominal pain and concern initially for possible kidney stone. Patient initially presented to his PCP with complaints of bodyaches and chills along with some urinary difficulty. He underwent some additional blood work and was found to have a mild leukocytosis. He also was found to have protein and blood in his urine which 1 along with a possible kidney stone. He was advised to present to the emergency room for further workup. He followed up last evening and underwent a CT scan. The CT scan indicated findings consistent with sigmoid diverticulitis along with about a 2 cm abscess. Patient was subsequently admitted and a surgical consult was also obtained. Based on the size and location of the abscess, this would be difficult to drain by interventional radiology and probably would be amenable to just antibiotic treatment alone. As a result he was subsequently admitted for IV antibiotics. This morning he states that he is doing remarkably well. He really denies any significant abdominal pain. No fevers or chills. [facility] Medical History CKD (chronic kidney disease), stage II Esophageal stenosis Hiatal hernia Esophageal reflux History of renal calculi Home Medications ?Medication ?Instructions ?Recorded ?Last Taken ?Type ondansetron 4 mg disintegrating 4 mg PO Q8H PRN PRN Nausea #10 tabs 04/22/14 Unknown Rx tablet oxycodone-acetaminophen 5 mg-325 1 - 2 tab PO Q4H PRN PRN Pain #20 04/22/14 Unknown Rx mg tablet tabs lansoprazole 30 mg capsule,delayed 30 mg PO DAILY stomach 07/27/24 Unknown History release Allergy/AdvReac Type Severity Reaction Status Date / Time shellfish derived Allergy Anaphylaxis Verified 07/26/24 18:18 Family History Mother Bowel obstruction Parkinsons disease Father Borderline diabetes CVA (cerebral vascular accident) Family History no significant family his Surgical History Dilation of esophagus History of hernia repair History of cholecystectomy Social History household members: spouse Smoking Status: Never smoker alcohol intake: current alcohol intake frequency: holidays/special occasions only substance use type: does not use ROS Eyes Eyes: Reports systems reviewed and no addt'l complaints, except as documented ENT HEENT: Reports systems reviewed and no addt'l complaints, except as documented Cardiovascular Cardiovascular: Reports systems reviewed and no addt'l complaints, except as documented Respiratory/Chest Respiratory/Chest: Reports systems reviewed and no addt'l complaints, except as documented Gastrointestinal Gastrointestinal: Reports systems reviewed and no addt'l complaints, except as documented Genitourinary Genitourinary: Reports systems reviewed and no addt'l complaints, except as documented Musculoskeletal Musculoskeletal: Reports systems reviewed and no addt'l complaints, except as documented Integumentary Integumentary: Reports systems reviewed and no addt'l complaints, except as documented Neurologic Neurologic: Reports systems reviewed and no addt'l complaints, except as documented Physical Exam Narrative He is alert and oriented x 3. He is in no acute distress. Head is normocephalic and atraumatic. Abdomen is soft, nontender and nondistended. There is no tenderness to palpation to any significant extent in the left lower quadrant. No rebound or guarding Medical Records Data Attestation: I reviewed the patient's medical records Lab / Micro Data Attestation: I reviewed the patient's lab results. 07/27/24 06:39 07/27/24 06:39 Labs: Laboratory Results - last 24 hr 07/26/24 18:29: WBC 8.5, RBC 5.20, Hgb 14.7, Hct 44.0, MCV 84.6, MCH 28.3, MCHC 33.4, RDW Std Deviation 40.4, RDW Coeff of Lesli 13.1, Plt Count 253, MPV 9.6, Immature Gran % (Auto) 0.400, Neut % (Auto) 69.3, Lymph % (Auto) 16.4 L, [place] % (Auto) 7.7, Eos % (Auto) 5.1 H, Baso % (Auto) 1.1 H, Absolute Neuts (auto) 5.9, Absolute Lymphs (auto) 1.39, Nucleated RBC % 0, Sodium 139, Potassium 4.3, Chloride 105, Carbon Dioxide 29.0, Anion Gap 5, BUN 27 H, Creatinine 1.19, Estim Creat Clear Calc 52.82, Est GFR (MDRD) Af Amer 76, Est GFR (MDRD) Non-Af 63, B UN/Creatinine Ratio 22.7 H, Glucose 143 H, Calcium 9.7, Total Bilirubin 0.40, AST 16, ALT 25, Alkaline Phosphatase 66, Total Protein 7.3, Albumin 3.4, Globulin 3.9, Albumin/Globulin Ratio 0.9 07/26/24 19:00: Urine Color Yellow, Urine Clarity Clear, Urine pH 6.0, Ur Specific [place] 1.025, Urine Protein 15 H, Urine Glucose (UA) Normal, Urine Ketones Negative, Urine Occult Blood Negative, Urine Nitrite Negative, Urine Bilirubin Negative, Urine Urobilinogen Normal, Ur Leukocyte Esterase Negative, Urine RBC 0 SEEN, Urine WBC 0 SEEN, Ur Squamous Epith Cells 0 SEEN, Urine Bacteria 0 SEEN, Urine Mucus 1+ 07/27/24 06:39: WBC 7.5, RBC 4.68, Hgb 12.8 L, Hct 39.6 L, MCV 84.6, MCH 27.4, MCHC 32.3, RDW Std Deviation 40.2, RDW Coeff of Lesli 13.2, Plt Count 246, MPV 9.8, Immature Gran % (Auto) 0.300, Neut % (Auto) 68.7, Lymph % (Auto) 16.9 L, [place] % (Auto) 8.1, Eos % (Auto) 4.9, Baso % (Auto) 1.1 H, Absolute Neuts (auto) 5.2, Absolute Lymphs (auto) 1.27, Nucleated RBC % 0, Sodium 140, Potassium 4.0, Chloride 109 H, Carbon Dioxide 26.0, Anion Gap 5, BUN 27 H, Creatinine 1.02, Estim Creat Clear Calc 61.63, Est GFR (MDRD) Af Amer 91, Est GFR (MDRD) Non-Af 75, BUN/Creatinine Ratio 26.5 H, Glucose 90, Calcium 9.1, Total Bilirubin 0.40, AST 17, ALT 19, Alkaline Phosphatase 55, Total Protein 6.1 L, Albumin 2.9 L, Globulin 3.2, Albumin/Globulin Ratio 0.9 Imaging Radiology Impression Abdomen/Pelvis CT 07/26/24 19:16 IMPRESSION: Diverticulosis and acute diverticulitis of the sigmoid colon with small peridiverticular abscess measuring approximately 2 x 1.75 cm. Electronically Signed: Christian Lee MD at 20:01 EST Reading Location ID and State: [facility] / [place] Tel , Service support , Charges/Coding Visit Charges Inpatient E&M: 52645 Init Hosp L3
--- NOTE | 2024-07-27 12:42 | PN_ITS ---
Subjective Subjective Patient seen and examined. He feels very well. He denies any abdominal pain, nausea or vomiting. He has been managed acute diverticulitis with peridiverticular abscess. He is on antibiotics. General surgery also consulted. Review of systems otherwise negative. Objective Data Objective Data Vital Signs: Vital Signs Temp Pulse Resp BP Pulse Ox O2 Del Method 97.7 F L 62 17 121/69 H 95 Room Air 07/27/24 08:06 07/27/24 08:06 07/27/24 08:06 07/27/24 08:06 07/27/24 08:19 07/27/24 08:19 Oxygen Delivery Method Room Air Weight: 167 lb Body Mass Index (BMI) 23.9 Intake & Output: Intake and Output for Last 24 Hours 07/25/24 07/26/24 07/27/24 23:59 23:59 23:59 Intake Total 100 / 100 1173.75 / 1173.75 Balance 100 / 100 1173.75 / 1173.75 Lab / Micro Data 07/27/24 06:39 07/27/24 06:39 Labs: Laboratory Results - last 24 hr 07/26/24 18:29: WBC 8.5, RBC 5.20, Hgb 14.7, Hct 44.0, MCV 84.6, MCH 28.3, MCHC 33.4, RDW Std Deviation 40.4, RDW Coeff of Lesli 13.1, Plt Count 253, MPV 9.6, Immature Gran % (Auto) 0.400, Neut % (Auto) 69.3, Lymph % (Auto) 16.4 L, [place] % (Auto) 7.7, Eos % (Auto) 5.1 H, Baso % (Auto) 1.1 H, Absolute Neuts (auto) 5.9, Absolute Lymphs (auto) 1.39, Nucleated RBC % 0, Sodium 139, Potassium 4.3, Chloride 105, Carbon Dioxide 29.0, Anion Gap 5, BUN 27 H, Creatinine 1.19, Estim Creat Clear Calc 52.82, Est GFR (MDRD) Af Amer 76, Est GFR (MDRD) Non-Af 63, B UN/Creatinine Ratio 22.7 H, Glucose 143 H, Calcium 9.7, Total Bilirubin 0.40, AST 16, ALT 25, Alkaline Phosphatase 66, Total Protein 7.3, Albumin 3.4, Globulin 3.9, Albumin/Globulin Ratio 0.9 07/26/24 19:00: Urine Color Yellow, Urine Clarity Clear, Urine pH 6.0, Ur Specific [place] 1.025, Urine Protein 15 H, Urine Glucose (UA) Normal, Urine Ketones Negative, Urine Occult Blood Negative, Urine Nitrite Negative, Urine Bilirubin Negative, Urine Urobilinogen Normal, Ur Leukocyte Esterase Negative, Urine RBC 0 SEEN, Urine WBC 0 SEEN, Ur Squamous Epith Cells 0 SEEN, Urine Bacteria 0 SEEN, Urine Mucus 1+ 07/27/24 06:39: WBC 7.5, RBC 4.68, Hgb 12.8 L, Hct 39.6 L, MCV 84.6, MCH 27.4, MCHC 32.3, RDW Std Deviation 40.2, RDW Coeff of Lesli 13.2, Plt Count 246, MPV 9.8, Immature Gran % (Auto) 0.300, Neut % (Auto) 68.7, Lymph % (Auto) 16.9 L, [place] % (Auto) 8.1, Eos % (Auto) 4.9, Baso % (Auto) 1.1 H, Absolute Neuts (auto) 5.2, Absolute Lymphs (auto) 1.27, Nucleated RBC % 0, Sodium 140, Potassium 4.0, Chloride 109 H, Carbon Dioxide 26.0, Anion Gap 5, BUN 27 H, Creatinine 1.02, Estim Creat Clear Calc 61.63, Est GFR (MDRD) Af Amer 91, Est GFR (MDRD) Non-Af 75, BUN/Creatinine Ratio 26.5 H, Glucose 90, Calcium 9.1, Total Bilirubin 0.40, AST 17, ALT 19, Alkaline Phosphatase 55, Total Protein 6.1 L, Albumin 2.9 L, Globulin 3.2, Albumin/Globulin Ratio 0.9 Radiography Diagnostic Testing: Radiology Impression Abdomen/Pelvis CT 07/26/24 19:16 IMPRESSION: Diverticulosis and acute diverticulitis of the sigmoid colon with small peridiverticular abscess measuring approximately 2 x 1.75 cm. Electronically Signed: Christian Lee MD at 20:01 EST , Physical Exam Const alert, oriented x3, no apparent distress and well nourished Constitutional Narrative: looks much younger than stated age. General Appearance: cooperative HEENT normocephalic, head/scalp atraumatic, moist oral mucous membranes and oropharynx normal Eyes PERRL and EOMs intact bilaterally Neck no lymphadenopathy and supple Lymph Lymphatic: no lymphadenopathy noted and no lymphedema noted Resp normal respiratory effort, normal air movement and clear to auscultation bilaterally Cardio regular rate, regular rhythm, S1 normal heart sound, S2 normal heart sound and no murmurs GI normal to inspection, nondistended, normoactive bowel sounds, soft to palpation, non-tender and non-distended Extremity normal capillary refill, no clubbing, cyanosis or edema and no calf tenderness General Extremity: no tenderness to palpation of joints or extremities Skin General Skin Exam: no breakdown Neuro CN's II-XII intact bilaterally, no focal motor deficits and no sensory deficits noted Motor Exam: strength 5/5 throughout and general weakness Psych thought process normal and cooperative Assessment & Plan Assessment/Plan (1) Diverticulitis of intestine with abscess: PLAN: Plan #Acute diverticulitis with peridiverticular abscess. * He was admitted with a complaint of abdominal pain mainly in the lower abdomen for about 3 to 4 days. * CT of the abdomen and pelvis done showed acute sigmoid diverticulitis with a small peridiverticular abscess measuring about 2 x 1.75 cm. * Currently on IV Zosyn. His pain is much improved and he feels better. * general surgery on board * on PO tylenol, PO oxycodone and IV morphine prn for pain * on liquid diet; diet advancement as per general surgery rec's.\ * By general surgery, considering the size and location of the abscess it is likely not amenable to IR drainage and antibiotic therapy may be sufficient to address the abscess. * Will benefit from repeat CT scan in a few weeks to document resolution of the abscess. And to have repeat colonoscopy in about 6 to 8 weeks after resolution of the current diverticulitis. * Will advance diet as tolerated. * #Esophageal stenosis: Stable # GERD: On PPI DVT prophylaxis: Lovenox Charges/Coding Visit Charges Inpatient E&M: 00280 Subs Hosp L2
[2024-07-27 14:06] VITALS: BP 125/60; PULSE 69; RESP 16; TEMP 36.9; O2SAT 97
--- NOTE | 2024-07-27 14:19 | CASEMGMT ---
RN HAYLEY [employer] CM?to room to meet with patient for initial transition planning/care coordination assessment. RN CM?introduced self and role at [facility]. Pt voices understanding and consents to assessment?at this time. Pt resting in bed in no distress at this time. @ bedside. Pt is A/O at this time and answers all questions appropriately. Care providers, pharmacy, and demographics verified/updated at this time. PCP: Dr Pace Specialists: none Preferred [facility]acy: [facility] Insurance: [facility] Prescription Benefit: yes LNOK: , Hanh. Daughter, Sabrina (only child) Living Arrangements: Lives w/ in 1 07/04 story home w/one step to enter. Independent. Transportation:?Pt states drives self and states no transportation concerns at this time. also drives. DME: Denies using any DME and denies needs. HHC/SNF: No hx. No needs identified. Pt wishes to return home and states has no concerns with going home at time of discharge. PLAN: Home Autumn LEOS RN, CM
[2024-07-27 20:30] VITALS: BP 119/72; PULSE 63; RESP 16; TEMP 37; O2SAT 98
[2024-07-28 02:20] VITALS: BP 132/68; PULSE 62; RESP 16; TEMP 36.6; O2SAT 99
[2024-07-28] MEDS: Piperacil/Tazobactam 3.375 GM in 0.9% Normal Saline (50mL MB+) 50 ML IV (05:47)
[2024-07-28 06:00] VITALS: BMI 23.8
[2024-07-28 06:29] LABS: Absolute Lymphocyte Count 1.39 X10^3/uL (0.83-4.51); Absolute Neutrophil Count 4.3 X10^3/uL (2.0-7.7); Basophil# 0.08 X10^3/uL; Basophil% 1.2 % (0-1); Eosinophil# 0.45 X10^3/uL; Eosinophils% 6.6 % (0-5); Hematocrit 39.3 % (40-54); Lymphocyte # 1.39 X10^3/ul (0.83-4.51); Lymphocyte % 20.3 % (19-41); Mean Corp Hgb Conc 33.1 g/dL (32-36); Mean Corpuscular Hgb 27.9 pg (27.0-32.0); Mean Corpuscular Volume 84.3 fL (80-94); Monocyte# 0.58 X10^3/uL; Monocyte% 8.5 % (0-10); NRBC Flagged by Analyzer 0 % (0-5); Neutrophil # 4.33 X10^3/uL (2.7-7.7); Platelet Count 260 K/mm3 (150-450); RBC Distribution Width CV 13.2 % (11.6-14.6); RBC Distribution Width SD 40.5 fl (35.1-43.9); Red Blood Count 4.66 M/mm3 (4.6-6.2); White Blood Count 6.9 K/mm3 (4.4-11.0)
[2024-07-28 07:16] VITALS: O2SAT 94
[2024-07-28 07:44] LABS: Anion Gap 3 (5-15); BUN 17 mg/dL (7-18); BUN/Creat Ratio 15.3 RATIO (10-20); Calcium,Total 9.1 mg/dL (8.5-10.1); Chloride 108 mmol/L (98-107); Creatinine, Serum 1.11 mg/dL (0.70-1.30); EST Glomerular Filtration Rate 68 mL/min (>60); Est Glom Filt Rate - Afr Amer 82 mL/min (>60); Estimated Creatinine Clearance 56.63 ml/min; Glucose 90 mg/dL (74-106); Sodium Level 139 mmol/L (136-145)
[2024-07-28 08:20] VITALS: BP 120/70; PULSE 63; RESP 18; TEMP 36.5; O2SAT 96
[2024-07-28] MEDS: Pantoprazole Sodium 40 MG in 0.9% Normal Saline (100mL MB+) 100 ML 330 MG IV (10:15)
--- NOTE | 2024-07-28 12:26 | PCM.PN.SRG ---
Subjective Subjective Patient continues to do well. He has no abdominal pain complaints today. He has been tolerating diet. He has no new issues or complaints. He would like to try to go home today if possible Objective Data Objective Data Vital Signs: Vital Signs Temp Pulse Resp BP Pulse Ox O2 Del Method 97.7 F L 63 18 120/70 96 Room Air 07/28/24 08:20 07/28/24 08:20 07/28/24 08:20 07/28/24 08:20 07/28/24 08:20 07/28/24 08:20 Oxygen Delivery Method Room Air Weight: 166 lb 10.711 oz Body Mass Index (BMI) 23.8 Intake & Output: Intake and Output for Last 24 Hours 07/26/24 07/27/24 07/28/24 23:59 23:59 23:59 Intake Total 100 / 100 1583.75 / 1583.75 210 / 210 Balance 100 / 100 1583.75 / 1583.75 210 / 210 Lab / Micro Data 07/28/24 05:35 07/28/24 05:35 Labs: Laboratory Results - last 24 hr 07/28/24 05:35: WBC 6.9, RBC 4.66, Hgb 13.0, Hct 39.3 L, MCV 84.3, MCH 27.9, MCHC 33.1, RDW Std Deviation 40.5, RDW Coeff of Lesli 13.2, Plt Count 260, MPV 10.0, Immature Gran % (Auto) 0.400, Neut % (Auto) 63.0, Lymph % (Auto) 20.3, [place] % (Auto) 8.5, Eos % (Auto) 6.6 H, Baso % (Auto) 1.2 H, Absolute Neuts (auto) 4.3, Absolute Lymphs (auto) 1.39, Nucleated RBC % 0, Sodium 139, Potassium 4.0, Chloride 108 H, Carbon Dioxide 28.0, Anion Gap 3 L, BUN 17, Creatinine 1.11, Estim Creat Clear Calc 56.63, Est GFR (MDRD) Af Amer 82, Est GFR (MDRD) Non-Af 68, BUN/Creatinine Ratio 15.3, Glucose 90, Calcium 9.1 Physical Exam Narrative He is alert and oriented x 3. He is in no acute distress. Abdomen is soft, nontender and nondistended. No pain in the left lower quadrant. No rebound or guarding. Assessment & Plan Assessment/Plan (1) Diverticulitis of intestine with abscess: PLAN: Plan The patient is a 78-year-old male with sigmoid diverticulitis and a 2 cm abscess adjacent to the sigmoid colon. This abscess is probably too small and not located in a favorable location for IR drainage. Clinically he remains essentially asymptomatic. He has been receiving IV antibiotics. I feel that is safe to advance his diet, switch him to oral antibiotics and discharge him to home. I did recommend that he follow-up with me in the next couple of weeks for follow-up. At that time we can set him up to undergo a repeat CT scan of the abdomen to follow the abscess. Is been probably 6 years since his last colonoscopy, and I would recommend repeat colonoscopy in about 8 weeks or so. He is agreeable to this plan. I am okay for advancing his diet and discharge to home. This was communicated to the hospitalist taking care of this patient. Charges/Coding Visit Charges Inpatient E&M: 60147 Subs Hosp L2
--- NOTE | 2024-07-28 12:43 | DCINST_ITS ---
Discharge Instructions Diet Discharge Diet: Low fat / Low cholesterol and - (high fibre diet) DC O2, CPAP, BIPAP needs Home O2 Discharge instructions: No Dressing / Incision Discharge Activity: Return to Normal Activity Weight Bearing Status: Weight bearing as tolerated Dressing / Incision Call your doctor if you observe: Fever of 101 or Higher, Shortness of breath, Swelling in the ankles and Uncontrolled pain Follow Up Care Test Results: Test results from this visit will be discussed in further detail at your follow- up appointment, if applicable. Discharge Plan Admission Admit Date/Time: 07/26/24 22:17 Primary Reason for Your Visit: acute divercitulitis with diverticular abscess Attending Provider: Rebekah Oseguera Primary Care Provider: aCio Pace Consulting Providers: Taye Funes; Yane Galloway Instructions Patient Instructions: Diverticulosis and Diverticulitis, Diverticulitis Dc Additional Instructions / Restrictions: eat a high fibre diet and avoid seeds which can lodge in diverticulae. Discharge Orders/Prescriptions Prescriptions: New ciprofloxacin HCl 500 mg tablet 500 mg PO BID Qty: 14 0RF metronidazole 500 mg tablet 500 mg PO TID Qty: 21 0RF Continued oxycodone-acetaminophen 1 TABLET tablet 1 - 2 tab PO Q4H PRN PRN (Reason: Pain) Qty: 20 0RF ondansetron 4 MG tablet 4 mg PO Q8H PRN PRN (Reason: Nausea) Qty: 10 0RF lansoprazole 30 mg capsule,delayed release(DR/EC) 30 mg PO DAILY Referrals / Follow Up: Taye Funes MD [Med Staff - Active Staff] - Within 2 Weeks Caio Pace MD [Primary Care Provider] - Within 1 Week Disposition Disposition (needs filled in before D/C Order can be placed): Home, Self Care
--- NOTE | 2024-07-28 12:44 | DS.PCM_ITS ---
Providers Date of Admission: 07/26/24 Date of Discharge: 07/28/24 Primary Care Physician: Dr. Caio Pace MD Consultations 07/26/24 23:39 Consult: General Surgery Routine Consulting Provider: Taye Funes Reason for Consult: Diverticulitis with abscess EMERGENT Consult: No MD Notified: Yes Date Notified: 07/26/24 Time Notified: 23:07 Method of Notification: ED Physician Initiated Reason For Visit: ACUTE DIVERTICULITIS W/ABSCESS Diagnosis Discharge Diagnosis (1) Diverticulitis of intestine with abscess: Status: Acute Code(s): K57.80 - Diverticulitis of intestine, part unspecified, with perforation and abscess without bleeding Plan #Acute diverticulitis with peridiverticular abscess. * He was admitted with a complaint of abdominal pain mainly in the lower abdomen for about 3 to 4 days. * CT of the abdomen and pelvis done showed acute sigmoid diverticulitis with a small peridiverticular abscess measuring about 2 x 1.75 cm. * Currently on IV Zosyn. His pain is much improved and he feels better. * general surgery on board * on PO tylenol, PO oxycodone and IV morphine prn for pain * on liquid diet; diet advancement as per general surgery rec's.\ * By general surgery, considering the size and location of the abscess it is likely not amenable to IR drainage and antibiotic therapy may be sufficient to address the abscess. * Will benefit from repeat CT scan in a few weeks to document resolution of the abscess. And to have repeat colonoscopy in about 6 to 8 weeks after resolution of the current diverticulitis. * Will advance diet as tolerated. * #Esophageal stenosis: Stable # GERD: On PPI DVT prophylaxis: Lovenox Medications at Discharge Home Medications ondansetron 4 mg disintegrating tablet 4 mg PO Q8H PRN PRN Nausea #10 tabs 04/22/14 oxycodone-acetaminophen 5 mg-325 mg tablet 1 - 2 tab PO Q4H PRN PRN Pain #20 tabs 04/22/14 lansoprazole 30 mg capsule,delayed release 30 mg PO DAILY stomach 07/27/24 ciprofloxacin HCl 500 mg tablet 500 mg PO BID #14 tabs 07/28/24 metronidazole 500 mg tablet 500 mg PO TID #21 tabs 07/28/24 Hospital Course Operations None Procedures None Summary of Care Provided Minutes Spent on Discharge: 45 Hospital Course: Patient is a 78-year-old male with a past medical history as outlined was admitted through the ED on 07/26/2024 with a complaint of lower abdominal pain which have been going on for about 4 days prior to admission. He has some generalized body pains with chills and difficulty urinating. He called his PCP and they did blood work which showed leukocytosis and there was also question of blood in his urine as well as concern for kidney stone. He was therefore called by his PCP and told to come into the ED. In the ED WBC was 8.5. CT of the abdomen and pelvis with contrast showed diverticulosis and acute diverticulitis of the sigmoid colon with small peridiverticular abscess measuring 2 x 1.75 cm. Urinalysis showed no evidence of UTI. He was started on IV Zosyn in the ED and admitted and managed for acute diverticulitis with peridiverticular abscess. His abdominal pain resolved and he felt much better. General surgery was on board. Patient was started on a diet which she tolerated. General surgery recommended that the diverticulitis with a peridiverticular abscess would be amenable to oral antibiotics and he did not need IR drainage. He was therefore discharged home on 07/28/2024 after he tolerated the diet. He was discharged on p.o. ciprofloxacin and p.o. metronidazole for 7-day course. He is to follow-up with general surgery for repeat CT of the abdomen and pelvis in a few weeks to evaluate if the abscess has resolved. He is also to follow-up with general surgery for repeat colonoscopy in about 8 weeks or so as his last colonoscopy was about 6 years ago. Patient was agreeable to this plan. As stated he tolerated his diet and was amenable to discharge. He was discharged home on 07/28/2024. He is to follow-up with his primary care doctor and general surgery within 1 to 2 weeks. Patient seen and examined prior to discharge. He had no active complaints. Review of systems otherwise negative. Labs and vitals reviewed. Home medication reviewed and reconciled. Physical Exam Const alert, oriented x3, no apparent distress and well nourished Constitutional Narrative: looks much younger than stated age. General Appearance: cooperative, comfortable and well kempt Orientation / Consciousness: awake Exam Limitations: no limitations HEENT normocephalic, head/scalp atraumatic, hearing grossly normal bilaterally, moist oral mucous membranes and oropharynx normal Mouth: oral and palatal mucosa normal Eyes PERRL, EOMs intact bilaterally and conjunctivae normal Neck no lymphadenopathy and supple Lymph Lymphatic: no lymphadenopathy noted and no lymphedema noted Resp normal respiratory effort, normal air movement and clear to auscultation bilaterally Cardio regular rate, regular rhythm, S1 normal heart sound, S2 normal heart sound and no murmurs GI normal to inspection, nondistended, normoactive bowel sounds, soft to palpation, non-tender and non-distended Extremity normal to inspection, full ROM, normal capillary refill, no clubbing, cyanosis or edema and no calf tenderness General Extremity: no tenderness to palpation of joints or extremities Skin no rashes or lesions noted and no wounds General Skin Exam: no breakdown Neuro oriented x3, CN's II-XII intact bilaterally, moves all extremities, no focal motor deficits and no sensory deficits noted Sensorium / Orientation: awake Motor Exam: strength 5/5 throughout and general weakness Psych thought process normal, cooperative and affect normal Weight / BMI Weight Weight: 166 lb 10.711 oz Body Mass Index (BMI) 23.8 ABG / Lab / Microbiology Data 07/28/24 05:35 07/28/24 05:35 Laboratory: Laboratory Results - last 24 hr 07/28/24 05:35: WBC 6.9, RBC 4.66, Hgb 13.0, Hct 39.3 L, MCV 84.3, MCH 27.9, MCHC 33.1, RDW Std Deviation 40.5, RDW Coeff of Lesli 13.2, Plt Count 260, MPV 10.0, Immature Gran % (Auto) 0.400, Neut % (Auto) 63.0, Lymph % (Auto) 20.3, [place] % (Auto) 8.5, Eos % (Auto) 6.6 H, Baso % (Auto) 1.2 H, Absolute Neuts (auto) 4.3, Absolute Lymphs (auto) 1.39, Nucleated RBC % 0, Sodium 139, Potassium 4.0, Chloride 108 H, Carbon Dioxide 28.0, Anion Gap 3 L, BUN 17, Creatinine 1.11, Estim Creat Clear Calc 56.63, Est GFR (MDRD) Af Amer 82, Est GFR (MDRD) Non-Af 68, BUN/Creatinine Ratio 15.3, Glucose 90, Calcium 9.1 D/C Instructions Discharge Diet: Low fat / Low cholesterol and - (high fibre diet) Weight Bearing Status: Weight bearing as tolerated Call your doctor if you observe: Fever of 101 or Higher, Shortness of breath, Swelling in the ankles and Uncontrolled pain DC O2, CPAP, BIPAP Needs Home O2 Discharge instructions: No DC home with Oxygen: No Meaningful Use Info Meaningful Use Meaningful Use Diagnoses (Choose all that apply): None applicable Ischemic Stroke Statin Dosing Therapy Reference: STATIN DOSE THERAPY REFERENCE: * Patients > 75 years receive moderate or high dose statin therapy. * Patients 75 years or YOUNGER should receive HIGH intensity statin dose unless contraindicated. You will be required to document reason for non-treatment if statin daily dose does not meet guidelines. HIGH DOSE STATIN THERAPY DAILY Atorvastatin > than or = to 40 mg Rosuvastatin > than or = to 20 mg Amlodipine + Atorvastatin > than or = to 2.5/40 mg Ezetimibe + Simvastatin 10/80 mg Simvastatin 80mg Discharge Plan Admission Admit Date/Time: 07/26/24 22:17 Primary Reason for Your Visit: acute divercitulitis with diverticular abscess Attending Provider: Rebekah Oseguera Primary Care Provider: Caio Pace Consulting Providers: Taye Funes; Yane Galloway Instructions Patient Instructions: Diverticulosis and Diverticulitis, Diverticulitis Dc Additional Instructions / Restrictions: eat a high fibre diet and avoid seeds which can lodge in diverticulae. Discharge Orders/Prescriptions Prescriptions: New ciprofloxacin HCl 500 mg tablet 500 mg PO BID Qty: 14 0RF metronidazole 500 mg tablet 500 mg PO TID Qty: 21 0RF Continued oxycodone-acetaminophen 1 TABLET tablet 1 - 2 tab PO Q4H PRN PRN (Reason: Pain) Qty: 20 0RF ondansetron 4 MG tablet 4 mg PO Q8H PRN PRN (Reason: Nausea) Qty: 10 0RF lansoprazole 30 mg capsule,delayed release(DR/EC) 30 mg PO DAILY Referrals / Follow Up: Taye Funes MD [Med Staff - Active Staff] - Within 2 Weeks Caio Pace MD [Primary Care Provider] - Within 1 Week Disposition Disposition (needs filled in before D/C Order can be placed): Home, Self Care Charges/Coding Visit Charges Inpatient E&M: 93823 Disch Hosp >30min
[2024-07-28 14:05] VITALS: BP 113/66; PULSE 66; RESP 18; TEMP 36.6; O2SAT 96
== END 2024-07-28 14:29 | disposition home or self-care (01) | DRG 392 ==
LOC: ED 21:58 → MS3 22:26
PROVIDERS: Admitting Provider Family Medicine; Emergency Provider Emergency Medicine; PCP Internal Medicine; Visit Provider Student in an Organized Health Care Education/Training Program
DX: K57.20 Diverticulitis of large intestine with perforation and abscess without bleeding (principal); K21.9 Gastro-esophageal reflux disease without esophagitis; N18.2 Chronic kidney disease, stage 2 (mild); Z79.899 Other long term (current) drug therapy
CPT/HCPCS: 36415; 74177; 80048; 80053; 81001; 85025; 94668; 99284; Q9967; A4216